=== PATIENT | female | born 1995 | race Caucasian/White ===

== ENCOUNTER 2024-12-06 17:12 | Emergency (ER) | payer OTHER, SELFPAY ==
[2024-12-06 17:24] VITALS: BP 121/61
[2024-12-06 17:43] LABS: % Basophils 0.5 % (0-2); % Eosinophils 0.5 % (0-6); % Immature Granulocytes 0.2 % (0-0.5); % Lymphocytes 14.5 % (20.5-51.1); % Neutrophils 79.3 % (42.2-75.2); Absolute Basophils 0.1 10^3/uL (0-0.2); Absolute Eosinophils 0.1 10^3/uL (0-0.7); Absolute Lymphocytes 1.9 10^3/uL (1.2-3.4); Absolute Monocytes 0.7 10^3/uL (0.1-0.6); Absolute Neutrophils 10.5 10^3/uL (1.4-6.5); Hematocrit 37.7 % (37.0-47.0); Hemoglobin 12.7 g/dL (12.0-16.0); Mean Corp Hgb Conc. 33.7 g/dL (33.0-37.0); Mean Corpuscular Hgb 29.9 pg (27.0-31.0); Mean Corpuscular Volume 88.7 fL (81.0-99.0); Mean Platelet Volume 8.8 fL (7.4-10.4); Nucleated Red Blood Cells % 0 %; Platelet Count 272 10^3/uL (130-400); Red Blood Cell Count 4.25 10^6/uL (4.20-5.40); Red Cell Dist. Width 12.2 % (11.5-14.5); White Blood Cell Count 13.2 10^3/uL (4.8-10.8)
[2024-12-06 17:52] LABS: HCG, Serum Qualitative Screen Negative
[2024-12-06 17:53] LABS: D-Dimer 0.44 ug/mlFEU (0.00-0.50)
[2024-12-06 17:56] LABS: COVID-19 Antigen Negative (Negative)
[2024-12-06 17:57] LABS: ALT (SGPT) 14 U/L (0-35); AST (SGOT) 17 U/L (14-36); Albumin 4.9 g/dl (3.5-5.0); Alkaline Phosphatase 52 U/L (38-126); Blood Urea Nitrogen 16 mg/dl (7-17); Calcium 9.9 mg/dl (8.4-10.2); Carbon Dioxide 29 mmol/L (22-30); Chloride 104 mmol/L (98-107); Glucose 113 mg/dl (70-99); Potassium 3.5 mmol/L (3.5-5.1); Sodium 141 mmol/L (135-145); Total Bilirubin 0.4 mg/dl (0.2-1.3); eGFR > 60.00
[2024-12-06 18:07] LABS: Troponin I < 0.012 ng/ml
--- NOTE | 2024-12-06 22:11 | ED.GENMED ---
History of Present Illness
General
Chief Complaint: Chest Pain
Source: patient
Time Seen by Provider: 12/06/24 21:46
History of Present Illness
History of Present Illness:
29-year-old female with a history of allergies and asthma who presents for evaluation after she was sent by her primary care doctor. Patient states she woke up today with congestion and suspected she had allergies. She then began to have some
chest tightness. She states she just suspect it was allergies and asthma. She then began to have a little bit of sharp chest pain to the left of her sternum. The patient states she went to see her primary care doctor who thought maybe they heard
a murmur. Also was worried about her EKG. Patient denies pleuritic pain. No leg swelling or leg pain. No smoking history. Is on control. Patient denies hemoptysis. She states she actually feels pretty good.
Past History
Past History
ED Past Medical History: Asthma
ED Past Surgical History: Tonsilectomy
Social History
Tobacco: Non-smoker
Phy Exam
Physical Exam
Physical Exam:
CONSTITUTIONAL Patient alert and oriented to person, place and time. Well-appearing. Vital signs reviewed.
HEAD atraumatic, normocephalic.
EYES eyelids normal to inspection, Extraocular muscles intact, Conjunctiva normal, Sclera normal.
NECK normal range of motion, Trachea midline, no jugular venous distention.
RESPIRATORY CHEST No respiratory distress noted, Chest expansion equal, Bilateral breath sounds clear.
CARDIOVASCULAR regular rate and rhythm, Heart sounds normal.
BACK normal inspection, no obvious deformities
UPPER EXTREMITY range of motion normal, Motor strength normal, no cyanosis, no edema.
LOWER EXTREMITY range of motion normal, Motor strength normal, no cyanosis, no edema.
NEURO Speech normal, No focal motor deficits, Junior coma scale 15, Memory normal, Cranial Nerves intact to screening exam.
SKIN skin warm, dry, and normal in color.
Scores
Heart Score for Chest Pain Patients
STEMI patient?: No
History: Slightly or Non-Suspicious
ECG: Normal
Age: </= 45 years
Risk Factors: No Risk Factors
Troponin: </= Normal Limit
Heart Score for Chest Pain Patients: 0
Heart Score Risk: 2.5% MACE over next 6 weeks
Course
Orders/Labs/Results
Orders:
Orders
12/06/24 17:13
Electrocardiogram (*1) Urgent
Reason for Study: Chest Pain
EKG- Treatment ONCE
12/06/24 17:28
Test Result ONCE
12/06/24 17:33
CMP [Comprehensive Metabolic Panel] Urgent
COVID-19 Antigen Urgent
Source: Nasal Swab
Complete Blood Count/With Diff Urgent
D-Dimer Urgent
HCG, Serum Qualitative Screen Urgent
Troponin I Urgent
Influenza A+B Rapid Molecular Urgent
SERENA Source: Nasal Swab
Specimen Description:
12/06/24 20:15
Chest [CR Chest - 2 Views ] Urgent
Comment:
Reason For Exam: SOB
Abnormal Lab Results
12/06/24
17:33
WBC 13.2 H 10^3/uL
(4.8-10.8)
Absolute Neuts (auto) 10.5 H 10^3/uL
(1.4-6.5)
Absolute Monos (auto) 0.7 H 10^3/uL
(0.1-0.6)
Neutrophils % 79.3 H %
(42.2-75.2)
Lymphocytes % 14.5 L %
(20.5-51.1)
Glucose 113 H mg/dl
(70-99)
12/06/24 17:33
12/06/24 17:33
Vital Signs
Initial and Last Documented VS:
Initial Vital Signs
Temp Pulse Resp BP Pulse Ox
98.7 F 78 16 121/61 100
12/06/24 17:24 12/06/24 17:24 12/06/24 17:24 12/06/24 17:24 12/06/24 17:24
Last Documented Vital Signs
Temp Pulse Resp BP Pulse Ox
98.7 F 70 16 102/68 99
12/06/24 17:24 12/06/24 22:13 12/06/24 22:13 12/06/24 22:13 12/06/24 22:13
MDM/Problems Addressed
Differential Diagnosis Includes:
PE, myocarditis, pericarditis, pleuritic pain, pneumothorax, pneumonia, musculoskeletal cause
MDM/Problems Addressed:
Chest pain, reactive airway disease
*Radiology
Radiology exam reviewed: preliminary read by ED provider and all reviewed NAD by ED Provider
*Pulse Oximetry
Patient hypoxic: no
*EKG
Interpreted by ED Provider?: Yes
Interpretation: normal
Rate: normal
Adams: normal axis
Interval: normal interval
QRS Pattern: normal QRS
Ischemia: no ischemia
*Potato Seed Cutter Interpretation
Rate: normal
Interpretation: normal
Rhythm: sinus
*Critical Care Note
Total Time (30-74mins, 75-104mins- exclusive of procedures): Not Applicable
Data Reviewed
Source: patient and significant other (Significant other reports that primary care doctor was just concerned about her EKG)
Prescriptions/Medications Considered But Not Given:
Consider antibiotics but no pneumonia
Patient Management
Escalation/DeEscalation of care consider admission/obs:
Patient appears well. Lungs are clear. EKG normal. D-dimer and troponin negative. Lungs currently clear. Will send in prescription for steroids. Advised if she is wheezing again tomorrow that she should start it. Also recommended daily
antihistamine and Flonase daily.
ED Attending Note
-
Portions of this chart may have been created with voice recognition software.� Occasional wrong word or��sound alike� substitutions may have occurred due to the inherent limitations of voice recognition software.
Discharge Plan
Departure
Patient Disposition: Home (Routine Discharge)
Date of Disposition: 12/06/24
Time of Disposition: 22:12
Patient with high blood pressure during this ER visit?: No
Discharge Problem:
Chest pain
Instructions: Chest Pain PCP Follow Up
Prescriptions:
New
prednisone 50 mg tablet
50 mg PO DAILY Qty: 5 0RF
Activity Restrictions/Additional Instructions:
Please take daily antihistamine as discussed. Please also use Flonase daily as discussed. Return immediately for chest pain that is worsening, shortness of breath, palpitations, weakness, passing out episode or any other concerns. Use your
albuterol as needed.
Interventions
Interventions:
*Risk Screen - Suicide Last Done: 12/06/24 17:24
*General Assessment Last Done: 12/06/24 20:18
*Neglect/Abuse Screening Last Done: 12/06/24 17:24
*ED- Fall Risk Assessment Last Done: 12/06/24 20:18
*ED COVID-19 Vaccine History Last Done: 12/06/24 20:18
*Nursing Disposition Last Done: 12/06/24 22:34
Discharge Date and Time
Discharge Date/Time: 12/06/24 22:34
Print Language: SINHALA
[2024-12-06 22:13] VITALS: BP 102/68
== END 2024-12-06 22:34 | disposition home or self-care (01) ==
LOC: EMR 17:12
PROVIDERS: Student in an Organized Health Care Education/Training Program; EMERGENCY PHYSICIAN Emergency Medicine; FAMILY PHYSICIAN Physician Assistant Medical
DX: R07.89 Other chest pain (principal); J45.909 Unspecified asthma, uncomplicated
CPT/HCPCS: 99283; 71046; 80053; 84484; 84703; 85025; 85379; 87502; 87811; 93005